=== PATIENT | male | born 1970 | race Caucasian/White ===

== ENCOUNTER 2017-04-14 13:53 | Outpatient (CLI) | payer OTHER ==
--- NOTE | 2017-04-14 19:03 | XRAY Report ---
THREE VIEW LEFT FOOT: 04/14/2017 CLINICAL INDICATION: Pain, edema. AP, lateral, oblique views of the left foot demonstrate moderate hallux valgus with mild osteoarthrit is. Pes planus is noted. There is no evidence of acute fracture or dislocation. IMPRESSION: HALLUX VALGUS AND PES PLANUS, WITH MILD OSTEOARTHRITIS. JOB #: [id number] EXT JOB #:[id number]
== END 2017-04-14 13:54 | disposition home or self-care (01) ==
LOC: DI 13:53
PROVIDERS: ATTEND Nurse Practitioner Family
DX: M19.072 Primary osteoarthritis, left ankle and foot (principal); M20.12 Hallux valgus (acquired), left foot; M21.42 Flat foot [pes planus] (acquired), left foot

== ENCOUNTER 2018-10-25 09:15 | Outpatient (CLI) | payer OTHER ==
--- NOTE | 2018-10-25 16:03 | XRAY Report ---
Reason: LOCALIZED SWELLING, SACROCOCCYGEAL DISORDERS Procedure Date: 10/25/2018 Accession Number: [id number] / [id number] Procedure: XR - Sacrum/Coccyx CPT Code: FULL RESULT: EXAM: SACRUM AND COCCYX RADIOGRAPHY EXAM DATE: 10/25/2018 09:58 AM. HISTORY: LOCALIZED SWELLING, SACROCOCCYGEAL DISORDERS, FALL 2 DAY AGO. COMPARISONS: None. TECHNIQUE: 3 views. FINDINGS: Alignment: The sacrum and coccyx are normally aligned. Bones: No fracture or bone lesion. Joints: The sacroiliac joints and visualized hips are within normal limits. Soft Tissues: Unremarkable. IMPRESSION: Negative sacrum and coccyx radiography. [facility]
--- NOTE | 2018-10-25 16:15 | XRAY Report ---
Reason: THYROID NODULE,BONE LESION Procedure Date: 10/25/2018 Accession Number: [id number] / [id number] Procedure: XR - Hand 2 View LT CPT Code: FULL RESULT: EXAM: LEFT HAND RADIOGRAPHY EXAM DATE: 10/25/2018 09:58 AM. CLINICAL HISTORY: Left hand pain postop for 2 days ago. COMPARISON: None. TECHNIQUE: 2 views. FINDINGS: Bones: No fractures or bone lesions. Joints: No significant degenerative arthritis. No subluxations. Soft Tissues: There is likely mild soft tissue swelling abutting the third and fourth metacarpophalangeal joints. IMPRESSION: Likely mild soft tissue swelling abutting the third and fourth metacarpophalangeal joints without discrete bony injury or fracture. [facility]
== END 2018-10-25 09:16 | disposition home or self-care (01) ==
LOC: DI 09:15
PROVIDERS: ATTEND Nurse Practitioner Family
DX: M53.3 Sacrococcygeal disorders, not elsewhere classified (principal); R60.0 Localized edema
CPT/HCPCS: 72220

== ENCOUNTER 2020-03-13 07:04 | Outpatient (CLI) | payer OTHER ==
[2020-03-13] MEDS ORDERED: IOVERSOL 320 50 ML VIAL ONE (07:46)
[2020-03-13] MEDS ORDERED: IOVERSOL 320 100 ML VIAL IVP ONE (07:46)
[2020-03-13] MEDS: IOVERSOL 320 50 ML VIAL PO ONE (08:29)
[2020-03-13] MEDS: IOVERSOL 320 100 ML VIAL IVP ONE (08:30)
--- NOTE | 2020-03-13 09:00 | CT Report ---
Reason: PELVIC SWELLING, MASS AND LUMP Procedure Date: 03/13/2020 Accession Number: [id number] / [id number] Procedure: CT - Abdomen/Pelvis W CPT Code: Final Report FULL RESULT: PROCEDURE: Abdomen/Pelvis W INDICATIONS: PELVIC SWELLING, MASS AND LUMP CONTRAST: IV CONTRAST: Optiray 320 ml: 100 PO CONTRAST: Optiray 320 ml50 TECHNIQUE: After the administration of oral and intravenous contrast, 5 mm thick sections acquired from the diaphragms to the symphysis. 5 mm thick coronal and sagittal reformats were acquired. For radiation dose reduction, the following was used: automated exposure control, adjustment of mA and/or kV according to patient size. COMPARISON: None. FINDINGS: Image quality: Excellent. ABDOMEN: Lung bases: Lung bases are clear. Heart size is normal. Solid organs: Spleen unremarkable. Hepatic steatosis. Gallbladder negative Biliary system is non dilated. Pancreas enhances normally. No adrenal nodules. Kidneys demonstrate normal size and enhancement, without hydronephrosis. Peritoneum and bowel: Bowel loops demonstrate normal wall thickness and caliber. No free fluid or air. The appendix is not clearly identified however no suspicious inflammatory changes in the right lower quadrant. Nodes and vessels: No retroperitoneal or mesenteric adenopathy by size criteria. Aorta and inferior vena cava are normal in size. Miscellaneous: No ventral hernias. PELVIS: Genitourinary: Bladder wall thickness is normal. Miscellaneous: No inguinal hernias or adenopathy. Bones: No suspicious bony lesions. No vertebral body compression fractures. IMPRESSION: Hepatic steatosis No acute abnormality Reviewed by: Sagar Bradshaw MD on 03/13/2020 8:59 AM PDT Approved by: Sagar Bradshaw MD on 03/13/2020 8:59 AM PDT Station ID: [id number]
== END 2020-03-13 07:05 | disposition home or self-care (01) ==
LOC: DI 07:04
PROVIDERS: ATTEND Nurse Practitioner Family
DX: R19.00 Intra-abdominal and pelvic swelling, mass and lump, unspecified site (principal); K76.0 Fatty (change of) liver, not elsewhere classified
CPT/HCPCS: 74177; Q9967

== ENCOUNTER 2021-04-15 15:01 | Emergency (ER) | payer OTHER ==
--- NOTE | 2021-04-15 15:49 | ED Physician Documentation ---
PD HPI UPPER EXT INJURY - Stated complaint Stated Complaint: LT FINGER LAC - Chief complaint Chief Complaint: Laceration - History obtained from History obtained from: Patient - History of Present Illness Location: Left, Finger (index finger dorsal PIP from broken glass.) Type of injury: Laceration (broken glass) Where injury occurred: Home Timing - onset: Today (just [employer]) Timing - details: Abrupt onset Worsened by: Palpating. No: Moving Associated symptoms: No: Weakness, Numbness Similar symptoms before: Has not had sx before Review of Systems Skin: reports: Laceration (s) Neurologic: denies: Focal weakness, Numbness PD PAST MEDICAL HISTORY - Past Medical History Past Medical History: No - Allergies Allergies/Adverse Reactions: Allergies Allergy/AdvReac Type Severity Reaction Status Date / Time No Known Drug Allergies Allergy Verified 04/15/21 15:04 PD ED PE NORMAL - Vitals Vital signs reviewed: Yes - General General: Alert and oriented X 3, No acute distress, Well developed/nourished - Derm Derm: Normal color, Warm and dry - Extremities Extremities: Other (left index finger with laceration dorsal PIP area to subcut tissue. Not involving deep structures and no FB seen. ) - Neuro Neuro: Alert and oriented X 3, No motor deficit, No sensory deficit, Normal speech Results - Vitals Vitals: Oxygen O2 Source Room air Procedures - Laceration (location) left index finger Length in cm: 2.3 Wound type: Linear Neurovascular status: Sensory intact, Motor intact, Vascular intact Tendon involvement: Tendon intact Anesthesia: Lidocaine 1% with epi Wound preparation: Wound explored, To the base. No: FB identified Skin layer closure: Running, Size #-0 - enter number (4), Sutures - enter # (9) Other: Patient tolerated well, No complications, Neurovascular intact, Dressing applied, Tetanus booster given PD MEDICAL DECISION MAKING - ED course Complexity details: d/w patient Departure - Departure Disposition: 01 Home, Self Care Clinical Impression: Finger laceration Qualifiers: Encounter type: initial encounter Finger: index finger Damage to nail status: without damage Foreign body presence: without foreign body Laterality: left Qualified Code(s): S61.211A - Laceration without foreign body of left index finger without damage to nail, initial encounter Condition: Stable Record reviewed to determine appropriate education?: Yes Instructions: ED Laceration Hand Follow-Up: MYRIAM MARY ARNP [Primary Care Provider] - Comments: It is okay to wash and shower. Clean off the wound twice a day with soap and water, or peroxide and water. Apply some antibiotic ointment to it to keep it moist. Also to watch for signs of infection such as purulence, redness or increasing pain. Return to your primary care or the ER at the specified time for suture removal. Suture removal 10 to 14 days. Tylenol or ibuprofen as needed for pains. You were given a tetanus booster today. Discharge Date/Time: 04/15/21 16:42
[2021-04-15] MEDS ORDERED: TETANUS/DIPHTHERIA/PERTUSSIS 0.5 ML SYRINGE IM ONE (16:06)
[2021-04-15 16:47] VITALS: BP 147/84
== END 2021-04-15 16:42 | disposition home or self-care (01) ==
LOC: ED 15:01
DX: S61.211A Laceration without foreign body of left index finger without damage to nail, initial encounter (principal); W25.XXXA Contact with sharp glass, initial encounter; Y92.009 Unspecified place in unspecified non-institutional (private) residence as the place of occurrence of the external cause; Z23 Encounter for immunization
CPT/HCPCS: 12001; 90471; 99282; 99283